=== PATIENT | female | born 1990 | race Caucasian/White ===

== ENCOUNTER 2021-05-27 21:36 | Emergency (ER) | payer OTHER ==
--- NOTE | 2021-05-28 01:16 | ED Physician Documentation ---
PD HPI DYSPNEA - Stated complaint Stated Complaint: SOA, COUGH - Chief complaint Chief Complaint: Resp - History obtained from History obtained from: Patient - History of Present Illness Timing - onset: How many months ago (over a month of increased dyspnea, wheezing, with repetitive cough keeping her away and worse with activity/breathing. Has had increased symptoms the past week. No fevers. Nonproductive cough. Hoarse voice.) Timing - onset during: Light activity Timing - duration: Months (over a month, but worse the past week) Timing - details: Gradual onset, Waxing and waning Inciting event(s): Other (She moved from out [facility] to [place] 2 months ago). No: Out of meds, URI (not having fever but has congestion, cough, malaise. Had COVID test 5 days ago that was negative.) Improved by: Inhaler/neb (briefly better with Albuterol MDI.) Associated symptoms: Cough, Wheezing. No: Fever, Bilateral edema Similar symptoms before: Diagnosis (asthma and allergies) Recently seen: Clinic (seen at a walk in a month ago and Rx with Flonase and renewal of her Albuterol.) Review of Systems Constitutional: reports: Myalgias, Fatigue. denies: Fever, Chills Nose: reports: Congestion. denies: Rhinorrhea / runny nose Throat: reports: Sore throat (scratchy) Cardiac: denies: Chest pain / pressure Respiratory: reports: Dyspnea, Cough, Wheezing GI: denies: Nausea, Diarrhea Skin: denies: Rash, Lesions PD PAST MEDICAL HISTORY - Past Medical History Cardiovascular: None Respiratory: Asthma Neuro: None Endocrine/Autoimmune: None - Present Medications Home Medications: Ambulatory Orders Medication Instructions Recorded Confirmed Cetirizine [ZyrTEC] 10 mg PO DAILY #15 tablet 05/28/21 Doxycycline Hyclate 100 mg PO BID #14 05/28/21 dexAMETHasone [Decadron] 4 mg PO DAILY #7 tablet 05/28/21 diphenhydrAMINE ELIXIR [Benadryl 25 mg PO Q6H PRN #240 ml 05/28/21 Elixir] - Allergies Allergies/Adverse Reactions: Allergies Allergy/AdvReac Type Severity Reaction Status Date / Time No Known Drug Allergies Allergy Verified 05/27/21 21:44 PD ED PE NORMAL - Vitals Vital signs reviewed: Yes - General General: Alert and oriented X 3, Well developed/nourished, Other (repetitive cough that appears to hurt in the chest. Cough precipitated with deep breathing and talking. ) - HEENT HEENT: Pharynx benign - Neck Neck: Supple, no meningeal sign, No adenopathy - Cardiac Cardiac: RRR, No murmur - Respiratory Respiratory: No: Clear bilaterally (exp wheezing noted. No coarse sounds. ) - Abdomen Abdomen: Soft, Non tender - Back Back: No CVA TTP - Derm Derm: Normal color, Warm and dry - Extremities Extremities: No edema, No calf tenderness / cord - Neuro Neuro: Alert and oriented X 3, No motor deficit, Normal speech Results - Vitals Vitals: Vital Signs - 24 hr 05/27/21 05/28/21 05/28/21 21:44 01:54 02:05 Temperature 36.6 C Heart Rate 85 85 98 Respiratory 16 20 20 Rate Blood Pressure 149/84 H 143/92 H O2 Saturation 97 97 05/28/21 05/28/21 02:33 02:38 Temperature 36.5 C Heart Rate 96 96 Respiratory 20 20 Rate Blood Pressure 125/79 125/79 O2 Saturation 97 97 Oxygen O2 Source Room air - Rads (name of study) chest xray Radiology: Prelim report reviewed (no inifltrates), See rad report PD MEDICAL DECISION MAKING - ED course Complexity details: re-evaluated patient (improved with neb treatment and Benadryl liquid. Will give steroids. Given underlying asthma and persistent cough, consider abx as well. ), considered differential (Seems likely either environmental allergies with exac asthma, or infectious such as viral (RSV could act like this) with less likely atypical bacterial. ), d/w patient Departure - Departure Disposition: 01 Home, Self Care Clinical Impression: Cough Dyspnea Qualifiers: Dyspnea type: dyspnea on exertion Qualified Code(s): R06.00 - Dyspnea, unspecified Condition: Stable Record reviewed to determine appropriate education?: Yes Instructions: ED Dyspnea Shortness of Breath Prescriptions: diphenhydrAMINE ELIXIR [Benadryl Elixir] 25 mg PO Q6H PRN #240 ml PRN Reason: Cough dexAMETHasone [Decadron] 4 mg PO DAILY #7 tablet Doxycycline Hyclate 100 mg PO BID #14 Cetirizine [ZyrTEC] 10 mg PO DAILY #15 tablet Comments: Continue with your albuterol inhaler 3 to 4 puffs 4 times a day regularly for the next several days to week. Add Decadron steroid daily for the next week. Diphenhydramine liquid every 6 hours if needed for cough and throat irritation. This is most likely a viral illness or a persistent environmental irritation. These would both be treated with the steroid and inhaler and antihistamine. However given the long duration of this, there would be consideration for a mild infection bacterial as well. Doxycycline antibiotic twice daily for 5 days for this possibility. Recheck if not improved well over the next several days. Return if worse. Discharge Date/Time: 05/28/21 02:37
[2021-05-28] MEDS ORDERED: ALBUTEROL NEB 2.5 MG/3 ML INH STA (01:38)
[2021-05-28] MEDS ORDERED: diphenhydrAMINE ELIXIR 25 MG/10 ML UDC PO STA (01:38)
[2021-05-28] MEDS ORDERED: DEXAMETHASONE 10 MG/ML VIAL PO STA (01:38)
[2021-05-28] MEDS ORDERED: CHERRY SYRUP 10 ML UDC PO ONE (01:38)
[2021-05-28] MEDS ORDERED: CETIRIZINE 10 MG TABLET PO STA (01:38)
[2021-05-28 02:33] VITALS: BP 125/79
--- NOTE | 2021-05-28 08:16 | XRAY Report ---
PROCEDURE: Chest 2 View X-Ray INDICATIONS: cough TECHNIQUE: 2 view(s) of the chest. COMPARISON: None. FINDINGS: Surgical changes and devices: None. Lungs and pleura: No pleural effusions or pneumothorax. Lungs are clear. Mediastinum: Mediastinal contours are normal. Heart size is normal. Bones and chest wall: No suspicious bony abnormalities. Soft tissues appear unremarkable. IMPRESSION: No acute cardiopulmonary abnormality. Findings are consistent with preliminary read. Reviewed by: Juan Banks on 05/28/2021 8:14 AM PDT Approved by: Juan Banks on 05/28/2021 8:14 AM PDT Station ID: [id number]
== END 2021-05-28 02:37 | disposition home or self-care (01) ==
LOC: ED 21:36
DX: R05 Cough (principal); R06.00 Dyspnea, unspecified; J45.909 Unspecified asthma, uncomplicated
CPT/HCPCS: 71046; 94640; 99283; A9270

== ENCOUNTER 2022-01-20 11:13 | Outpatient (CLI) | payer OTHER ==
--- NOTE | 2022-01-20 17:14 | XRAY Report ---
PROCEDURE: Chest 2 View X-Ray INDICATIONS: COUGH TECHNIQUE: 2 view(s) of the chest. COMPARISON: 05/27/2021. FINDINGS: Surgical changes and devices: None. Lungs and pleura: No pleural effusions or pneumothorax. Lungs are clear. Mediastinum: Mediastinal contours are normal. Heart size is normal. Bones and chest wall: No suspicious bony abnormalities. Soft tissues appear unremarkable. IMPRESSION: Chest without acute cardiopulmonary abnormalities. No focal consolidation. Reviewed by: Carlos Dale MD on 01/20/2022 5:13 PM PDT Approved by: Carlos Dale MD on 01/20/2022 5:13 PM PDT Station ID: [id number]
== END 2022-01-20 23:59 | disposition home or self-care (01) ==
LOC: DI.N 11:13
PROVIDERS: ATTEND Physician Assistant Medical
DX: R05.9 Cough, unspecified (principal); R06.02 Shortness of breath